=== PATIENT | female | born 1990 | race Caucasian/White ===

== ENCOUNTER 2016-11-12 16:14 | Emergency (ER) | payer OTHER ==
[~2016-11-12] VITALS: Ht 149.9 cm; Wt 54.5 kg
[~2016-11-12 16:14] MED LIST: NOCURR
[2016-11-12 18:10] LABS: APPEARANCE,URINE CLEAR (CLEAR); GLUCOSE, URINE (UA) NEGATIVE (NEGATIVE); KETONES,URINE 15 mg/dL (NEGATIVE); LEUKOCYTE ESTERASE ,URINE SMALL (NEGATIVE); OCCULT BLOOD,URINE NEGATIVE (NEGATIVE); PROTEIN,URINE NEGATIVE (NEGATIVE)
[2016-11-12 18:20] LABS: ADD UA MICROSCOPIC YES; RBC,URINE 0-2 /HPF (0-2); SQUAMOUS EPITHELIAL CELL,UR Many /LPF (None Seen)
[2016-11-12] MEDS: SULFAMETHOX/TRIMETH DS 800-160 MG/TABLET PO ONE (18:42)
[2016-11-12] MEDS: KETOROLAC TROMETHAMINE 30 MG/ML VIAL IM ONE (18:45)
[2016-11-12 18:47] VITALS: BP 112/76
== END 2016-11-12 18:49 | disposition home or self-care (01) ==
LOC: EMS 16:15
DX: N39.0 Urinary tract infection, site not specified (principal); M54.5 Low back pain
CPT/HCPCS: 81001; 81025; 87086; 96372; 99284; J1885